=== PATIENT | female | born 1980 | race Caucasian/White ===

== ENCOUNTER 2017-11-12 23:55 | Emergency (ER) | payer MEDICARE, MEDICAID, SELFPAY ==
[2017-11-12 23:56] VITALS: BP 132/93; PULSE 122; RESP 21; TEMP 37.3; O2SAT 92; BMI 34.6
[2017-11-13] VITALS (12 sets, daily range): BP systolic 90–120; BP diastolic 46–79; PULSE 80–98; RESP 14–20; TEMP 37.3; O2SAT 93–100
--- NOTE | 2017-11-13 00:02 | CT_ITS ---
STUDY: CT BRAIN WITHOUT CONTRAST REASON FOR EXAM: Female, 37 years old. Altered mental status. RADIATION DOSAGE (If Supplied By Facility): CTDIvol = ( 44.99 ) mGy, DLP = ( 745.49 ) mGycm TECHNIQUE: Transaxial CT imaging of the brain was performed without administration of intravenous contrast material. Individualized dose optimization techniques were used for this CT. COMPARISON: None. FINDINGS: Normal soft tissue structures. Normal calvarium. Normal size ventricles and extra-axial spaces for the patient's age. Normal white matter tracts of the cerebral hemispheres. Normal basal ganglia and thalami. Normal brainstem. Normal cerebellum. There is no intracranial hemorrhage. There are no findings of an acute ischemic infarction. Normal visualized paranasal sinuses. CT/Brain/Head without Contrast IMPRESSION: Normal unenhanced CT scan of the brain. Electronically Signed: Charles Strong MD at 0:59 EDT Tel , Service support ,
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
[2017-11-13 00:20] LABS: Absolute Lymphocyte Count 3.35 X10^3/ul (0.83-4.51); Absolute Neutrophil Count 11.1 X10^3/uL (2.0-7.7); Basophil# 0.02 X10^3/uL; Basophil% 0.1 % (0-1); Eosinophil# 0.11 X10^3/uL; Eosinophils% 0.7 % (0-5); Hematocrit 41.7 % (37-47); Hemoglobin 14.5 g/dl (12.0-15.0); Lymphocyte # 3.35 X10^3/ul (4.0); Mean Corp Hgb Conc 34.8 g/gl (32-36); Mean Corpuscular Hgb 30.5 pg (27.0-32.0); Mean Corpuscular Volume 87.8 fL (81-99); Mean Platelet Vol. 10.3 fl (6.2-12.0); Monocyte# 0.63 X10^3/uL; Monocyte% 4.1 % (0-10); Neutrophil # 11.05 X10^3/uL (2.7-7.7); Neutrophil % 72.8 % (47-70); Platelet Count 384 K/mm3 (150-450); RBC Distribution Width CV 13.6 % (11.6-14.6); RBC Distribution Width SD 43.6 fl (35.1-43.9); Red Blood Count 4.75 M/mm3 (4.2-5.4); White Blood Count 15.2 K/mm3 (4.4-11.0)
[2017-11-13 00:24] LABS: POSITIVE COUNT NO; POSITIVE DIFFERENTIAL NO; POSITIVE MORPHOLOGY NO
[2017-11-13 00:46] LABS: ALB/GLOB Ratio 0.8 RATIO (0.9-2.4); AST(SGOT) 16 U/L (15-37); Alanine Aminotransfer ALT/SGPT 29 U/L (13-56); Albumin, Serum 3.4 g/dL (3.2-5.0); Alkaline Phosphatase 122 U/L (45-117); Anion Gap 13 (5-15); BUN 10 mg/dL (7-18); Calcium,Total 9.1 mg/dL (8.5-10.1); Chloride 105 mmol/L (98-107); Creatinine, Serum 0.91 mg/dL (0.55-1.02); EST Glomerular Filtration Rate 73 mL/min (>60); Est Glom Filt Rate - Afr Amer 89 mL/min (>60); Estimated Creatinine Clearance 75.43 ml/min; Globulin 4.1 g/dL (2.2-4.2); Glucose 180 mg/dL (74-106); Potassium 3.5 mmol/L (3.5-5.1); Protein, Total 7.5 g/dL (6.4-8.2); Sodium Level 139 mmol/L (136-145); Thyroid Stim Hormone (TSH) 3.46 uIU/mL (0.358-3.74)
[2017-11-13 00:56] LABS: Alcohol, Blood (Medical)-Serum < 3.0 mg/dL
[2017-11-13 01:34] LABS: Bacteria 0 SEEN /hpf (None Seen); Mucous, Urine 0 SEEN /hpf (<or=2+); Red Blood Cells-Urine 0 SEEN /hpf (0-5)
[2017-11-13 01:38] LABS: Color, Urine Yellow (Yellow); Glucose, Dipstick Normal (Normal); Ketone-Dipstick 5 mg/dl (Negative); Leukocyte Esterase-Dipstick 25 /ul (Negative); Nitrite-Dipstick Negative (Negative); Occult Blood-Urine 10 /ul (Negative); Protein-Dipstick 15 mg/dl (Negative); Urine Bilirubin Dipstick Negative (Negative); Urine Clarity Sl. Cloudy (Clear); Urine Urobilinogen Normal (Normal)
[2017-11-13 01:45] LABS: Hyaline Cast 0-5 SEEN /lpf (0-5); Squamous Epithelial Cells - UA > 100 SEEN /hpf (5-10); White Blood Cells 5-10 SEEN /hpf (0-5)
[2017-11-13 01:52] LABS: Pregnancy, Serum, hCG Quali. NEGATIVE Negative (0-9 Nonpreg)
[2017-11-13 01:58] LABS: Amphetamine Urine VISTA NEGATIVE (<1000 ng/mL); Barbiturate Urine VISTA NEGATIVE (< 200 ng/mL); Benzodiazepine Urine VISTA POSITIVE (< 200 ng/mL); Cocaine Urine VISTA NEGATIVE (< 300 ng/mL); Ecstacy Urine VISTA NEGATIVE (< 500 ng/mL); Methadone Urine VISTA NEGATIVE (< 300 ng/mL); PCP Urine VISTA NEGATIVE (< 25 ng/mL); THC Urine VISTA NEGATIVE (< 50 ng/mL); Vista UDS pH Range 5
--- NOTE | 2017-11-13 02:29 | ED.RN ---
REMOVED LEATHER RESTRAINTS FROM BILAT ANKLES AND WRIST,WILL MONITOR.PT SLEEPING.
--- NOTE | 2017-11-13 08:44 | NURSING ---
[facility] CALLED TO SAY PATIENT HAS TO BE OUT OF RESTRAINTS FOR 24 HRS BEFORE THEY WILL TAKE HER. CALLED CRISIS AND LET [facility]OSSOM KNOW.
--- NOTE | 2017-11-13 14:02 | ED.RN ---
Attempted to call report to Sandra Baldwin, no answer. Will call back.
--- NOTE | 2017-11-13 14:14 | NURSING ---
[facility] ETA IS 45 MIN
== END 2017-11-13 15:20 ==
PROVIDERS: Emergency Provider Emergency Medicine
DX: F31.9 Bipolar disorder, unspecified (principal); F23 Brief psychotic disorder; M25.572 Pain in left ankle and joints of left foot; Z78.1 Physical restraint status
CPT/HCPCS: 70450; 80053; 80307; 80320; 81001; 84443; 84703; 85025; 99285; G0480

== ENCOUNTER 2018-04-23 09:30 | Emergency (ER) | payer MEDICARE, MEDICAID, SELFPAY ==
[2018-04-23] VITALS (13 sets, daily range): BP systolic 111–165; BP diastolic 64–123; PULSE 74–141; RESP 14–18; TEMP 37.1; O2SAT 97–100; BMI 28.3
--- NOTE | 2018-04-23 09:37 | ED.RN ---
PT REFUSES TO ANSWER QUESTIONS, PT IS PINK SLIPPED.
[2018-04-23] MEDS: LORazepam 2 MG/ML Syringe IM (09:51)
[2018-04-23] MEDS: Haloperidol Lactate 5 MG/ML Vial IM (09:51)
[2018-04-23] MEDS: DiphenhydrAMINE 50 MG/ML Syringe 25 MG IM (09:51)
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
[2018-04-23] MEDS: Ziprasidone IM 20 MG/ML VIAL IM (10:20)
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
[2018-04-23 11:35] LABS: Absolute Lymphocyte Count 1.58 X10^3/ul (0.83-4.51); Absolute Neutrophil Count 8.4 X10^3/uL (2.0-7.7); Basophil# 0.02 X10^3/uL; Basophil% 0.2 % (0-1); Eosinophil# 0.02 X10^3/uL; Eosinophils% 0.2 % (0-5); Hematocrit 40.9 % (37-47); Hemoglobin 13.5 g/dl (12.0-15.0); Lymphocyte # 1.58 X10^3/ul (4.0); Mean Corpuscular Hgb 29.5 pg (27.0-32.0); Mean Corpuscular Volume 89.5 fL (81-99); Mean Platelet Vol. 10.7 fl (6.2-12.0); Monocyte# 0.48 X10^3/uL; Monocyte% 4.5 % (0-10); Neutrophil # 8.44 X10^3/uL (2.7-7.7); POSITIVE COUNT NO; POSITIVE DIFFERENTIAL NO; POSITIVE MORPHOLOGY NO; Platelet Count 270 K/mm3 (150-450); RBC Distribution Width CV 14.4 % (11.6-14.6); RBC Distribution Width SD 46.3 fl (35.1-43.9); Red Blood Count 4.57 M/mm3 (4.2-5.4); White Blood Count 10.6 K/mm3 (4.4-11.0)
[2018-04-23 11:44] LABS: Anion Gap 13 (5-15); BUN 9 mg/dL (7-18); BUN/Creat Ratio 11.3 RATIO (10-20); Calcium,Total 8.8 mg/dL (8.5-10.1); Chloride 101 mmol/L (98-107); EST Glomerular Filtration Rate 85 mL/min (>60); Est Glom Filt Rate - Afr Amer 103 mL/min (>60); Estimated Creatinine Clearance 84.96 ml/min; Glucose 126 mg/dL (74-106); Potassium 3.3 mmol/L (3.5-5.1); Sodium Level 138 mmol/L (136-145)
[2018-04-23 11:47] LABS: Pregnancy, Serum, hCG Quali. NEGATIVE Negative (0-9 Nonpreg)
[2018-04-23 12:33] LABS: Amphetamine Urine VISTA NEGATIVE (<1000 ng/mL); Barbiturate Urine VISTA NEGATIVE (< 200 ng/mL); Benzodiazepine Urine VISTA NEGATIVE (< 200 ng/mL); Cocaine Urine VISTA NEGATIVE (< 300 ng/mL); Ecstacy Urine VISTA NEGATIVE (< 500 ng/mL); Methadone Urine VISTA NEGATIVE (< 300 ng/mL); PCP Urine VISTA NEGATIVE (< 25 ng/mL); THC Urine VISTA NEGATIVE (< 50 ng/mL); Vista UDS pH Range 5
--- NOTE | 2018-04-23 14:46 | ED.RN ---
Pt sleeping and in no distress. restraints removed from right arm and left leg. Pt awoke shortly and was informed if behavior remained intact the remaining restraints would be removed.
--- NOTE | 2018-04-23 17:05 | ED.RN ---
CRISIS WE WILL BE OVER SOON
--- NOTE | 2018-04-23 17:48 | ED.RN ---
THIS RN SPEAKING WITH PT. PT EDUCATED THAT SHE CANNOT LEAVE, AND THAT SHE MUST REMAIN COOPERATIVE. PT INFORMED THAT SHE IS AWAITING CRISIS COUNSELOR. PT REPORTS THAT SHE WILL BE COOPERATIVE WITH STAFF. RESTRAINTS REMOVED AT 1745. PT ASSISTED UP TO BSC. MEAL AND DRINK GIVEN. HRO IN DEPT.
--- NOTE | 2018-04-23 19:18 | EKG12_ITS ---
Test Reason : Blood Pressure : / mmHG Vent. Rate : 081 BPM Atrial Rate : 081 BPM P-R Int : 176 ms QRS Dur : 080 ms QT Int : 382 ms P-R-T Axes : 049 -08 038 degrees QTc Int : 443 ms Normal sinus rhythm Low voltage QRS Borderline ECG Confirmed by ALTA BRODY, CHARISSE ([id number]), dictionary editor SHERIDAN DELONG ([id number] on 04/27/2018 8:49:37 AM Referred By: AR Confirmed By:CHARISSE HOLM MD
[2018-04-23 20:08] LABS: AST(SGOT) 14 U/L (15-37); Alanine Aminotransfer ALT/SGPT 24 U/L (13-56); Albumin, Serum 3.7 g/dL (3.2-5.0); Alkaline Phosphatase 113 U/L (45-117); Bilirubin, Direct 0.06 mg/dL (0.00-0.30); Globulin 3.5 g/dL (2.2-4.2); Protein, Total 7.2 g/dL (6.4-8.2)
[2018-04-23 22:05] LABS: Bacteria 0 SEEN /hpf (None Seen); Mucous, Urine 0 SEEN /hpf (<or=2+); Red Blood Cells-Urine 0 SEEN /hpf (0-5); White Blood Cells 0 SEEN /hpf (0-5)
[2018-04-23 22:06] LABS: Color, Urine Yellow (Yellow); Glucose, Dipstick Normal (Normal); Ketone-Dipstick Negative (Negative); Leukocyte Esterase-Dipstick Negative /ul (Negative); Nitrite-Dipstick Negative (Negative); Occult Blood-Urine Negative /ul (Negative); Protein-Dipstick Negative (Negative); Specific Gravity, Urine 1.015 (1.002-1.030); Urine Bilirubin Dipstick Negative (Negative); Urine Clarity Sl. Cloudy (Clear); Urine Urobilinogen Normal (Normal)
[2018-04-23 22:11] LABS: Squamous Epithelial Cells - UA 0-5 SEEN /hpf (5-10)
[2018-04-23 22:12] LABS: Amorphous Sediment 1+ PHOS
--- NOTE | 2018-04-23 22:32 | ED.RN ---
EXPLAINED TO PT THAT SHE IS GOING TO BE TRANSFERRED TO [facility], PT DOES NOT WANT TO TRANSFERRED. EXPLAINED TO PT THAT SHE HAS TO GO. PT STARTED TO RAISE HER VOICE BUT DID COMPLY TO GET ON COT WITH THE SQUAD. PT LEFT ON SQUAD COT.
== END 2018-04-23 22:33 ==
PROVIDERS: Emergency Medicine; Emergency Provider Emergency Medicine
DX: F23 Brief psychotic disorder (principal); F31.9 Bipolar disorder, unspecified; Z91.14 Patient's other noncompliance with medication regimen
CPT/HCPCS: 80048; 80076; 80307; 80320; 81001; 84703; 85025; 93005; 96372; 99285; G0480; J3486

== ENCOUNTER 2018-12-17 21:15 | Emergency (ER) | payer MEDICARE, MEDICAID, SELFPAY ==
[2018-04-23 09:31] VITALS: BMI 28.3
[2018-12-17 21:16] VITALS: RESP 15; TEMP 36.8; BMI 29.9
[2018-12-17] MEDS: LORazepam 1 MG Tablet PO (21:35)
[2018-12-17 21:45] VITALS: BP 178/145; PULSE 120; RESP 22; O2SAT 97
[2018-12-17] MEDS: Ziprasidone IM 20 MG/ML VIAL IM (22:05)
[2018-12-17 22:10] LABS: Absolute Lymphocyte Count 3.65 X10^3/uL (0.83-4.51); Absolute Neutrophil Count 9.3 X10^3/uL (2.0-7.7); Basophil# 0.03 X10^3/uL; Basophil% 0.2 % (0-1); Eosinophil# 0.07 X10^3/uL; Eosinophils% 0.5 % (0-5); Hematocrit 45.1 % (37-47); Hemoglobin 14.8 g/dL (12.0-15.0); Lymphocyte # 3.65 X10^3/ul (4.0); Lymphocyte % 26.3 % (19-41); Mean Corp Hgb Conc 32.8 g/dL (32-36); Mean Corpuscular Volume 91.3 fL (81-99); Mean Platelet Vol. 10.5 fl (6.2-12.0); Monocyte# 0.77 X10^3/uL; Monocyte% 5.5 % (0-10); NRBC Flagged by Analyzer 0 % (0-5); Neutrophil # 9.34 X10^3/uL (2.7-7.7); Neutrophil % 67.2 % (47-70); Platelet Count 357 K/mm3 (150-450); RBC Distribution Width CV 13.3 % (11.6-14.6); RBC Distribution Width SD 45.1 fl (35.1-43.9); Red Blood Count 4.94 M/mm3 (4.2-5.4); White Blood Count 13.9 K/mm3 (4.4-11.0)
[2018-12-17 22:16] LABS: Amphetamine Urine VISTA NEGATIVE (<1000 ng/mL); Barbiturate Urine VISTA NEGATIVE (< 200 ng/mL); Benzodiazepine Urine VISTA NEGATIVE (< 200 ng/mL); Cocaine Urine VISTA NEGATIVE (< 300 ng/mL); Ecstacy Urine VISTA NEGATIVE (< 500 ng/mL); Methadone Urine VISTA NEGATIVE (< 300 ng/mL); PCP Urine VISTA NEGATIVE (< 25 ng/mL); THC Urine VISTA NEGATIVE (< 50 ng/mL); Vista UDS pH Range 5
[2018-12-17 22:16] LABS: Internal QC Validated? YES +Cl - CLEAR BKGD; Pregnancy, Serum, hCG Quali. NEGATIVE Negative
[2018-12-17 22:20] LABS: Anion Gap 8 (5-15); BUN 11 mg/dL (7-18); BUN/Creat Ratio 10.6 RATIO (10-20); Chloride 105 mmol/L (98-107); Creatinine, Serum 1.04 mg/dL (0.55-1.02); EST Glomerular Filtration Rate 62 mL/min (>60); Est Glom Filt Rate - Afr Amer 76 mL/min (>60); Estimated Creatinine Clearance 65.35 ml/min; Glucose 136 mg/dL (74-106); Potassium 3.6 mmol/L (3.5-5.1); Sodium Level 138 mmol/L (136-145)
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
[2018-12-17 22:35] LABS: Alcohol, Blood (Medical)-Serum < 3.0 mg/dL
--- NOTE | 2018-12-17 22:38 | NURSING ---
CALLED CRISIS AT [id number]
[2018-12-17 23:01] VITALS: PULSE 80; RESP 14
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
--- NOTE | 2018-12-18 01:20 | PCA ---
CRISIS COUNSELOR SENT REFERRAL TO [facility] AWAITING ACCEPTANCE.
--- NOTE | 2018-12-18 01:31 | PCA ---
[facility] HAS RECEIVED FAX INFORMATION AWAITING ACCEPTANCE.
[2018-12-18 02:54] VITALS: BP 101/51; PULSE 68; RESP 15; TEMP 36.5; O2SAT 95
--- NOTE | 2018-12-18 03:25 | NURSING ---
ACCEPTED TO [facility] BY DR. LIVE [phone] REPORT
[2018-12-18 06:12] VITALS: RESP 18
[2018-12-18 07:08] VITALS: BP 101/51; PULSE 68; RESP 15; TEMP 36.6; O2SAT 95
[2018-12-18 07:49] VITALS: BP 124/84; PULSE 78; RESP 16; O2SAT 98
== END 2018-12-18 07:52 ==
PROVIDERS: Emergency Provider Emergency Medicine
DX: F29 Unspecified psychosis not due to a substance or known physiological condition (principal); M25.532 Pain in left wrist; M25.531 Pain in right wrist; M25.572 Pain in left ankle and joints of left foot; M25.571 Pain in right ankle and joints of right foot; G89.29 Other chronic pain
CPT/HCPCS: 80048; 80307; 80320; 84703; 85025; 96372; 99285; G0480; J3486

== ENCOUNTER 2020-12-02 19:21 | Emergency (ER) | payer MEDICARE, MEDICAID, SELFPAY ==
[2020-12-02 19:23] VITALS: BP 126/90; PULSE 97; RESP 18; TEMP 36.6; O2SAT 98; BMI 36.3
[2020-12-02] MEDS: hydrOXYzine PAM 25 MG Capsule 50 MG PO (21:12)
--- NOTE | 2020-12-02 21:16 | ED.RN ---
PT LEFT PRIOR TO RECIEVING DC INSTRUCTIONS
--- NOTE | 2020-12-02 21:18 | EDS_ITS ---
HPI History of Present Illness Chief Complaint: Other, Pain/Inj Narrative Narrative: Patient is a 40-year-old female who states her legs have been shaking ever since she was in the mental institution and she received a shot. She denies any trauma any nausea vomiting or back pain associated with this. She states she is unsure what she was given but as the shaking is not stopped at home she presents for evaluation [facility] Medical History Anxiety Schizophrenia Home Medications benztropine 0.5 mg PO DAILY 12/02/20 [History Last Taken Unknown] divalproex [Depakote] 500 mg PO TID 12/02/20 [History Last Taken Unknown] fluphenazine decanoate 10 mg IM UD 12/02/20 [History Last Taken 11/26/20] trazodone 50 mg PO QHS PRN 12/02/20 [History Last Taken Unknown] Allergy/AdvReac Type Severity Reaction Status Date / Time risperidone Allergy Unknown Verified 12/02/20 19:25 Tetanus Vaccines and Toxoid Allergy Unknown Verified 12/02/20 19:25 [Tetanus Vaccines & Toxoid] Social History Smoking Status: Current every day smoker tobacco type: cigarettes ROS ROS ED Constitutional Constitutional ED: Denies chills or fever(s) ENT ENT ED: Denies sore throat Cardiovascular Cardiovascular: Denies chest pain Respiratory/Chest Respiratory/Chest: Denies cough Gastrointestinal Gastrointestinal: Denies nausea or vomiting Musculoskeletal Musculoskeletal: Reports myalgias Integumentary Denies rash Neurologic Neurologic: Denies headache(s) Psychiatric Psychiatric: Reports anxiety EXAM Physical Exam Const Vital Signs: 12/02/20 19:23 12/02/20 20:00 Temperature 97.9 F Temperature Source Temporal Pulse Rate 97 Respiratory Rate 18 Respiratory Pattern Normal Blood Pressure 126/90 H Blood Pressure Mean 102 Pulse Ox 98 Oxygen Delivery Method Room Air Positive well nourished and well developed General Appearance ED: well developed Eyes PERRL and EOMs intact bilaterally Neck supple Chest Wall inspection of chest normal Resp normal respiratory effort and clear to auscultation bilaterally Cardio regular rate, regular rhythm and no murmurs GI GI Narrative: Abdomen soft nontender nondistended with normoactive bowel sounds no voluntary guarding or rigidity no pulsatile mass Back/Spine Back/Spine Narrative: No bony deformity or step-off of the thoracic or lumbar spine no midline pain on palpation. No saddle anesthesia. Negative straight leg. No clonus or Babinski. Patellar reflexes are +2-4 bilaterally Extremity Extremity Narrative: Bilateral lower extremities are neurovascularly intact. Patient has active shaking of both lower legs that resolved when she does dedicated activities such as walking or changing position in the bed. The shaking also resolves with distraction. No signs of trauma no overlying ecchymosis redness or warmth to suggest infection. No asymmetric edema Neuro oriented x3 and CN's II-XII intact bilaterally Sensorium / Orientation: alert Psych Mood & Affect: anxious and tearful Skin no rashes or lesions noted MDM MDM MDM Narrative Medical decision making narrative: Patient presented to the ER in no acute distress. The tremors were more voluntary on exam as they would resolve with distraction or activity of the body. She was unsure what meds she was given but there was no signs of neuroleptic malignant syndrome or serotonin syndrome. Therefore I felt no need for imaging or laboratory studies. Patient will be given hydroxyzine to help calm her down as I feel this is related to anxiety and she is safe for discharge as she has no homicidal or suicidal ideation Discharge Plan Triage Chief Complaint: Other, Pain/Inj ED Provider: Yrn Matt Dx/Rx/DC Orders Clinical Impression: Tremor, Anxiety Instructions: Your Body's Response to Anxiety Prescriptions: No Action benztropine 0.5 mg Tablet 0.5 mg PO DAILY RF: 0 trazodone 50 mg Tablet 50 mg PO QHS PRN (Reason: Sleep) RF: 0 divalproex [Depakote] 500 mg Tablet,Delayed Release (Dr/Ec) 500 mg PO TID RF: 0 fluphenazine decanoate 25 mg/mL solution 10 mg IM UD RF: 0 Primary Care Provider: Care Physician,No Primary Referrals: Care Physician,No Primary [Primary Care Provider] - Fast,Julieta, DO [NON-STAFF] - 3-5 Days if not improving Disposition Disposition: Home, Self Care
== END 2020-12-02 21:24 | disposition home or self-care (01) ==
PROVIDERS: Emergency Provider Emergency Medicine
DX: R25.1 Tremor, unspecified (principal); F41.9 Anxiety disorder, unspecified; F20.9 Schizophrenia, unspecified; Z79.899 Other long term (current) drug therapy; F17.210 Nicotine dependence, cigarettes, uncomplicated
CPT/HCPCS: 99284

== ENCOUNTER 2021-08-18 15:20 | Emergency (ER) | payer MEDICARE, SELFPAY ==
[2021-08-18] VITALS (7 sets, daily range): BP systolic 102–155; BP diastolic 59–105; PULSE 72–97; RESP 15–18; TEMP 36.4; O2SAT 93–98; BMI 33.0
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
--- NOTE | 2021-08-18 15:46 | ED.RN ---
pt arrives to ed with handcuff behind her back. she arrived screaming i want restraining orders against all of you. fuck you and you etc. pt is pink slipped by PD. per PD she was spitting and bitting at her residence. she was premedicated by ems with 20 mg of geodon IM. ed dr ordered violent restraints to ensure patient and staff safety. restraints applied with pd and ed staff. no injury occurred to patient or staff with placement. justin jamison, rn [id number]
[2021-08-18] MEDS: Haloperidol Lactate 5 MG/ML Vial IM (16:45)
[2021-08-18] MEDS: LORazepam 2 MG/ML Syringe IM (16:45)
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
[2021-08-18 18:16] LABS: Absolute Lymphocyte Count 2.08 X10^3/uL (0.83-4.51); Absolute Neutrophil Count 7.9 X10^3/uL (2.0-7.7); Basophil# 0.02 X10^3/uL; Basophil% 0.2 % (0-1); Eosinophil# 0.03 X10^3/uL; Eosinophils% 0.3 % (0-5); Hematocrit 41.6 % (37-47); Hemoglobin 13.7 g/dL (12.0-15.0); Lymphocyte # 2.08 X10^3/ul (0.83-4.51); Lymphocyte % 19.5 % (19-41); Mean Corp Hgb Conc 32.9 g/dL (32-36); Mean Corpuscular Volume 91.2 fL (81-99); Mean Platelet Vol. 9.9 fl (6.2-12.0); Monocyte# 0.54 X10^3/uL; Monocyte% 5.1 % (0-10); NRBC Flagged by Analyzer 0 % (0-5); Neutrophil # 7.93 X10^3/uL (2.7-7.7); Neutrophil % 74.5 % (47-70); Platelet Count 301 K/mm3 (150-450); RBC Distribution Width CV 13.2 % (11.6-14.6); RBC Distribution Width SD 44.3 fl (35.1-43.9); Red Blood Count 4.56 M/mm3 (4.2-5.4); White Blood Count 10.6 K/mm3 (4.4-11.0)
[2021-08-18 18:34] LABS: Internal QC Validated? YES +Cl - CLEAR BKGD; Pregnancy, Serum, hCG Quali. NEGATIVE Negative
[2021-08-18 19:01] LABS: Alcohol, Blood (Medical)-Serum < 3.0 mg/dL
--- NOTE | 2021-08-18 19:12 | ED.RN ---
pt has become more cooperative after medications were given. labs pulled by manager agricultural. pt given a sandwich, cheese stick, and cookies with a jordi cola to drink. 2 extremities removed from restraints. pt was instructed that if she remained calm that we would work towards removing her from restraints. justin jamison rn
[2021-08-18 19:15] LABS: AST(SGOT) 24 U/L (15-37); Alanine Aminotransfer ALT/SGPT 39 U/L (13-56); Albumin, Serum 3.4 g/dL (3.2-5.0); Alkaline Phosphatase 116 U/L (45-117); Anion Gap 6 (5-15); BUN 13 mg/dL (7-18); Calcium,Total 8.9 mg/dL (8.5-10.1); Chloride 110 mmol/L (98-107); Creatinine, Serum 0.77 mg/dL (0.55-1.02); EST Glomerular Filtration Rate 88 mL/min (>60); Est Glom Filt Rate - Afr Amer 106 mL/min (>60); Estimated Creatinine Clearance 96.01 ml/min; Globulin 3.4 g/dL (2.2-4.2); Glucose 111 mg/dL (74-106); Protein, Total 6.8 g/dL (6.4-8.2); Sodium Level 140 mmol/L (136-145)
--- NOTE | 2021-08-18 20:20 | ED.RN ---
pt removed from restraints and ambulated to bathroom. no gait or balance disturbance noted. hat was placed into toilet. this nurse heard paitent urinate into toilet. upon entering the restroom hat was empty of urine. was informed of attempt to collect urine. request that we call crisis to evaluate pt and to let them know we would collect a sample next time she goes. pt left out of restraints. she is resting in bed, eyes closed with no s/s of physical distress. justin jamison rn [id number]
[2021-08-19] VITALS (8 sets, daily range): BP systolic 108–121; BP diastolic 66–74; PULSE 71–80; RESP 15–18; O2SAT 96–98
--- NOTE | 2021-08-19 00:24 | ED.RN ---
CRISIS CALLED AND SAID PATIENT IS OUT OF BED DAYS, SO CRISIS IS GOING TO HAVE TO TRY DIFFERENT PLACES TO GET HER INTO
--- NOTE | 2021-08-19 07:48 | ED.RN ---
Attempted to obtain pt's vitals. Upon entering the room and introducing self, pt refused vitals. Asked if RN could obtain her blood pressure, pt stated NO! I don't like you!. Attempted then to obtain temperature and pt stated NO! You're too greedy!
[2021-08-19 08:13] LABS: Bacteria 0 SEEN /hpf (None Seen); Mucous, Urine 0 SEEN /hpf (<or=2+); Red Blood Cells-Urine 0 SEEN /hpf (0-5)
[2021-08-19 08:17] LABS: Color, Urine Yellow (Yellow); Glucose, Dipstick Normal (Normal); Ketone-Dipstick Negative (Negative); Leukocyte Esterase-Dipstick Negative /ul (Negative); Nitrite-Dipstick Negative (Negative); Occult Blood-Urine Negative /ul (Negative); Protein-Dipstick Negative (Negative); Urine Bilirubin Dipstick Negative (Negative); Urine Clarity Clear (Clear); Urine Urobilinogen Normal (Normal)
--- NOTE | 2021-08-19 08:21 | ED.RN ---
Pt came out of room asking for bathroom. AUDIO RECORDING ENGINEER assisted to bathroom and pt provided a urine sample. Pt requesting coffee and a nicotine gum. Pt was agreeable to allow AUDIO RECORDING ENGINEER to obtain vitals. Coffee provided. Will speak with MD regarding Nicotine gum request.
[2021-08-19 08:36] LABS: Amphetamine Urine VISTA NEGATIVE (<1000 ng/mL); Barbiturate Urine VISTA NEGATIVE (< 200 ng/mL); Benzodiazepine Urine VISTA NEGATIVE (< 200 ng/mL); Cocaine Urine VISTA NEGATIVE (< 300 ng/mL); Ecstacy Urine VISTA NEGATIVE (< 500 ng/mL); Methadone Urine VISTA NEGATIVE (< 300 ng/mL); PCP Urine VISTA NEGATIVE (< 25 ng/mL); THC Urine VISTA NEGATIVE (< 50 ng/mL); Vista UDS pH Range 5
[2021-08-19 08:45] LABS: Squamous Epithelial Cells - UA 5-10 SEEN /hpf (5-10); White Blood Cells 0-5 SEEN /hpf (0-5)
--- NOTE | 2021-08-19 09:08 | ED.RN ---
PT IS BECOMING MORE AGGRESSIVE AND AGGITATED. GAVE PT TOOTHPASTE AND TOOTHBRUSH. PT IS YELLING OUT OF THE ROOM ABOUT NO CONTACT ORDERS AND CUSSING AT STAFF IN THE HALLWAY. UNABLE TO DIVERT PT.
[2021-08-19] MEDS: Ziprasidone IM 20 MG/ML VIAL IM (09:23)
--- NOTE | 2021-08-19 10:22 | NURSING ---
PER [place] WITH CRISIS; SHE IS OUT OF MEDICAID DAYS. HAVE TO GO THRU MEDICAID FACILITIES; [facility]
--- NOTE | 2021-08-19 10:48 | CM.ED ---
Addendum entered by Ana Du 08/19/21 14:46: SKIP noted patient has Medicare [place] so SKIP asked [facility] to make a referral to [facility]. Carmen from [facility] stated patient has used all psych bed days. Thus, as patient has exhausted her psych beds days from her insurance provider, Medicare [place] patient placement at [facility] must be pursued. Ana Irwin Original Note: SKIP note SKIP called Carmen at [facility] for update on patient's placement status. Patient is out of medicaid psych bed days and thus referred to [facility]. The wait list for [facility] has 8 people on it. SKIP updated relief charge nurse. Plan: [facility] is working on placement. Ana IRWIN
--- NOTE | 2021-08-19 12:02 | EKG12_ITS ---
Test Reason : Blood Pressure : / mmHG Vent. Rate : 080 BPM Atrial Rate : 080 BPM P-R Int : 194 ms QRS Dur : 076 ms QT Int : 396 ms P-R-T Axes : 046 -15 034 degrees QTc Int : 456 ms Normal sinus rhythm Low voltage QRS Borderline ECG Confirmed by ALTA BRODY, CHARISSE ([id number]), medical transcription editor MYRON STOUT ([id number]) on 08/21/2021 9:47:32 AM Referred By: KAYLEE Confirmed By:CHARISSE HOLM MD
--- NOTE | 2021-08-19 12:46 | ED.RN ---
FAXED EKG AND TOX SCREEN TO [facility] PER THEIR REQUEST
[2021-08-19] MEDS: Nicotine Polacrilex 2 MG GUM PO ×4 (12:49→22:13)
[2021-08-19] MEDS: Acetaminophen 500 MG Tablet 1000 MG PO (16:14)
--- NOTE | 2021-08-19 17:12 | CM.ED ---
Clau from [facility] called. [place] had advised that patient is out of medicare bed days but that patient could go to [facility] with psych unit so her staff has been calling various hospitals today but no beds are available. Clau also advised that [facility] said that they can take patient tomorrow. Mu, from [facility], told Clau that they are aware of patient and her issues and will take her on Thursday morning. Mu advised they have all the paperwork needed for patient. SW updated RN and environmental health specialist. Plan: [facility] Ana IRWIN
--- NOTE | 2021-08-19 20:10 | CM.ED ---
SW Note RN advised that [facility] called for an update. RN indicated that [facility] will call during 3rd shift to advise when patient can be sent there for treatment. Plan: [facility] Ana IRWIN
[2021-08-20 00:48] VITALS: RESP 16
[2021-08-20 02:04] VITALS: RESP 16
[2021-08-20 03:30] VITALS: RESP 15
[2021-08-20 04:49] VITALS: PULSE 87; RESP 18; O2SAT 96
[2021-08-20 06:14] VITALS: RESP 16
[2021-08-20 07:05] VITALS: RESP 16
--- NOTE | 2021-08-20 07:29 | NURSING ---
CALLED [facility], ETA IS 20 MIN
== END 2021-08-20 08:05 ==
PROVIDERS: Emergency Provider Emergency Medicine; Visit Provider Emergency Medicine
DX: F23 Brief psychotic disorder (principal); F22 Delusional disorders; F17.210 Nicotine dependence, cigarettes, uncomplicated; E66.9 Obesity, unspecified
CPT/HCPCS: 36415; 80053; 80307; 81001; 82077; 84443; 84703; 85025; 87811; 93005; 96372; 99285; J3486

== ENCOUNTER 2021-10-07 14:48 | Emergency (ER) | payer MEDICARE, SELFPAY ==
[2021-10-07 14:52] VITALS: PULSE 87; RESP 18; TEMP 36.2; O2SAT 98; BMI 38.0
--- NOTE | 2021-10-07 15:02 | EX.ED.VIS.PS ---
HPI HPI - Psych History of Present Illness Chief Complaint: Mental Health Narrative Narrative: 41-year-old female here with mental health concern. The patient states she thinks people are trying to hack her through her bank account. Per police officers who brought her in patient called was paranoid behaving abnormally and so they brought her to the emergency department for concern for acute psychosis. Old chart reviewed: History of bipolar disorder, tremor and anxiety. trazodone, fluphenazine, Depakote PFSH PFSH Medical History Anxiety Schizophrenia Home Medications benztropine 0.5 mg tablet 0.5 mg PO DAILY 12/02/20 [History Last Taken Unknown] divalproex 500 mg tablet,delayed release (Depakote) 500 mg PO TID 12/02/20 [History Last Taken Unknown] fluphenazine decanoate 25 mg/mL injection solution 10 mg IM UD 12/02/20 [History Last Taken 11/26/20] trazodone 50 mg tablet 50 mg PO QHS PRN Sleep 12/02/20 [History Last Taken Unknown] Allergy/AdvReac Type Severity Reaction Status Date / Time risperidone Allergy Unknown Verified 10/07/21 14:54 Tetanus Vaccines and Toxoid Allergy Unknown Verified 10/07/21 14:54 [Tetanus Vaccines & Toxoid] Social History Smoking Status: Current every day smoker tobacco type: cigarettes ROS ROS ED Review of Systems ROS Unobtainable: due to mental condition Constitutional Constitutional ED: Denies chills Cardiovascular Cardiovascular: Denies chest pain Respiratory/Chest Respiratory/Chest: Denies dyspnea or dyspnea on exertion Gastrointestinal Gastrointestinal: Denies abdominal pain Genitourinary Genitourinary ED: Denies dysuria Neurologic Neurologic: Denies headache(s) EXAM Physical Exam Const Vital Signs: 10/07/21 14:52 Temperature 97.1 F L Temperature Source Temporal Pulse Rate 87 Respiratory Rate 18 Pulse Ox 98 Oxygen Delivery Method Room Air Negative for alert or oriented x3 General Appearance ED: Negative for comfortable Orientation / Consciousness: Negative for awake HEENT Denies normocephalic Face and Sinus: Negative for face symmetric External Ear: Negative for external ears normal Mouth ED: No moist mucous membranes normal Throat: Negative for posterior oropharynx normal Eyes Negative for PERRL or EOMs intact bilaterally Neck No full ROM Carotids: other Other Details: no carotid bruits Chest Wall Negative for inspection of chest normal Resp No normal respiratory effort, No no retractions, No no use of accessory muscles and No clear to auscultation bilaterally Cardio Negative for no murmurs or peripheral pulses 2+ throughout GI Negative for no bruits GI Narrative: no pulsatile abdominal masses Negative for no CVA tenderness Back/Spine Cervical Spine: Negative for cervical ROM normal Extremity Negative for normal to inspection or full ROM Psych Psych Narrative: Patient appeared pressured, agitated, she had tangential thoughts, she appeared responding to internal stimuli. Skin Rashes: no rashes MDM MDM MDM Narrative Medical decision making narrative: 41-year-old female presents with concern for psychosis in setting of bipolar disorder med noncompliance. Patient was initially tachycardic but otherwise hemodynamically stable. Initially paranoid, agitated, appear acutely psychotic. Required oral Benadryl, Haldol and Ativan for sedation. Ordered medical clearance labs. Medical clearance labs are pending at this time. Patient will likely require psychiatric admission given decompensated bipolar disorder and likely psychosis. Signed out to p.m. physician in stable condition pending medical clearance and likely admission to psychiatric facility. Lab Data Lab results narrative: Labs are pending at this time Labs: Laboratory Results - last 24 hr 10/07/21 10/07/21 15:49 17:00 WBC 12.5 H RBC 4.79 Hgb 14.3 Hct 44.6 MCV 93.1 MCH 29.9 MCHC 32.1 RDW Std Deviation 45.6 H RDW Coeff of Aubrey 13.3 Plt Count 293 MPV 10.1 Immature Gran % (Auto) 0.300 Neut % (Auto) 83.2 H Lymph % (Auto) 12.5 L Lawrence % (Auto) 3.7 Eos % (Auto) 0.1 Baso % (Auto) 0.2 Absolute Neuts (auto) 10.4 H Absolute Lymphs (auto) 1.56 Nucleated RBC % 0 Urine Opiates Screen NEGATIVE Urine Methadone Screen NEGATIVE Ur Barbiturates Screen NEGATIVE Ur Phencyclidine Scrn NEGATIVE Ur Amphetamines Screen NEGATIVE MDMA (Ecstasy) Screen NEGATIVE U Benzodiazepines Scrn NEGATIVE Urine Cocaine Screen NEGATIVE U Cannabinoids Screen NEGATIVE Ur Drug Screen Comment EKG Initial EKG: Comments: EKG with sinus tachycardia, normal axis, normal intervals, no obvious ST or T wave changes to suggest myocardial ischemia Discharge Plan Triage Chief Complaint: Mental Health ED Provider: Usaam Garcias Dx/Rx/DC Orders Prescriptions: No Action benztropine 0.5 mg Tablet 0.5 mg PO DAILY trazodone 50 mg Tablet 50 mg PO QHS PRN (Reason: Sleep) divalproex [Depakote] 500 mg Tablet,Delayed Release (Dr/Ec) 500 mg PO TID fluphenazine decanoate 25 mg/mL solution 10 mg IM UD Rx Instructions: every 2 weeks Primary Care Provider: Care Physician,No Primary Referrals: Care Physician,No Primary [Primary Care Provider] -
--- NOTE | 2021-10-07 15:13 | EKG12_ITS ---
Test Reason : GENERAL Blood Pressure : / mmHG Vent. Rate : 116 BPM Atrial Rate : 116 BPM P-R Int : 166 ms QRS Dur : 072 ms QT Int : 314 ms P-R-T Axes : 054 001 040 degrees QTc Int : 436 ms Sinus tachycardia Low voltage QRS Inferior infarct , age undetermined , cannot be excluded Poor R wave progression Anterior-Septal ME, age undetermined, cannot be excluded Abnormal ECG Confirmed by GENET BRODY, CANDICE ([id number]), legal editor MYRON STOUT ([id number]) on 10/08/2021 9:06:05 AM Referred By: BHARATH Confirmed By:CANDICE DE LEÓN MD
[2021-10-07] MEDS: DiphenhydrAMINE 25 MG Capsule 50 MG PO (15:16)
[2021-10-07] MEDS: LORazepam 1 MG Tablet 2 MG PO (15:16)
--- NOTE | 2021-10-07 16:00 | CM.ED ---
Social Work Note SW reviewed chart, pt was recently at [facility] and was placed at [facility] due to pt not having any psych beds left under pt's Medicare. Pt has no secondary insurance. Telephone call to Crisis and spoke with Carmen. Carmen checked and either Crisis or this SW can complete assessment for pt. Crisis will then send referral to [facility]. SW to complete assessment. Carmen Eaton METAL CANS SUPERVISOR, SITE MANAGER
[2021-10-07] MEDS: Haloperidol 5 MG Tablet PO (16:04)
[2021-10-07] MEDS: Ibuprofen 200 MG Tablet 400 MG PO (16:12)
[2021-10-07] MEDS: Ibuprofen 200 MG Tablet PO (16:14)
--- NOTE | 2021-10-07 16:33 | CM.ED ---
Social Work Assessment Social Work Psychiatric Assessment Reason for consult: Mental Health Informant(s): Pt, Randell Handley, Chart Review Chief Complaint: Pt states that she came to [facility] because ?they wanted her to come to the hospital.? Pt states the ?officers brought me in.? Pt states that her family has POA and she needs to find her family so she can andrea ?people like you.? Pt states that her family is POA for her bank. Marital/Social History: Marital Status: Pt states ?I don?t know, never know who and where my family is and their alliances? Living Situation: Pt states that she lives in [place] in an apartment. Pt states that she feels like a fraud. [facility] the government?s burn phones. Pt states she couldn?t get her tax information. Pt states that she just lost her father. Pt states she wants to get Soccer Manager balls to get the internet but states she hasn?t got her taxes. Pt states that she was lied to about the burn phones and she can?t pay rent. Pt states the police needs to do their job and disclose information. Support/Resources: Pt states ?not anymore due to manipulation.? History: Pt states she has diplomatic disclose, Ignacio Peace Emery, and has been in the [employer]. Education and Employment History: Pt states that she got her GED and did a work program. Pt states she doesn?t drink alcohol. Pt states that she went to [facility] for Nursing. Mental Health Treatment/History: Pt states that she went to the police to get Civil Scaling Machine Operator to get documentation from the FBI to where and when her family is. Pt states to stop committing fraud. Pt states she had an injury and used Marijuana. Pt states that she became sexually promiscuous and they were ?manipulating wires.? Pt states that she took Flonase and put her wrist and elbow back in. Per previous assessments, pt has been diagnosed with Paranoid Schizophrenia and Schizoaffective D/O Bipolar Type. Triggers/Stressors: Unable to assess at this time due to current psychiatric presentation. Coping Skills: Unable to assess at this time due to current psychiatric presentation. Abuse Issues: Unable to assess at this time due to current psychiatric presentation. Substance Abuse Hx: Pt states ?everything is a drug, this chocolate milk is a drug.? Risk to Self/Others: ? Suicidal: Pt states ?cutting wrists.? Pt states that she is looking forward to making the world a better place. Pt voiced not suicidal ideations. ? Homicidal: Unable to assess at this time due to current psychiatric presentation. ? Violence: Unable to assess at this time due to current psychiatric presentation. Mental Status Exam: Orientation: Pt is alert and orientated x4. Memory: Poor Appearance/General Behavior: Clean/appropriate Mood/Affect: Labile, bizarre Communication Pattern: Rambling, Rapid Thought Process: Flight of Ideas, Paranoid General Intellectual Functioning: Below Average Judgment: Poor Insight: Poor Pt was Pearl Slipped to [facility]. Per [place], ?Patient called police to speak with an officer about unknown problem: Patient then displayed a total loss of reality, talking complete nonsense and exhibiting extreme paranoia. Patient has history of Mental illness. Patient admitted to having thoughts of cutting herself, but said she was not suicidal.? SW discussed with MD Garcias who agrees with recommendation of Inpatient Psychiatric Hospitalization for Crisis Stabilization and Medication Management. Plan: Inpatient Psychiatric Hospitalization for Crisis Stabilization and Medication Management Carmen Eaton UROGYNECOLOGY PHYSICIAN, STRAP MAKER
[2021-10-07 16:53] LABS: Amphetamine Urine VISTA NEGATIVE (<1000 ng/mL); Barbiturate Urine VISTA NEGATIVE (< 200 ng/mL); Benzodiazepine Urine VISTA NEGATIVE (< 200 ng/mL); Cocaine Urine VISTA NEGATIVE (< 300 ng/mL); Ecstacy Urine VISTA NEGATIVE (< 500 ng/mL); Methadone Urine VISTA NEGATIVE (< 300 ng/mL); PCP Urine VISTA NEGATIVE (< 25 ng/mL); THC Urine VISTA NEGATIVE (< 50 ng/mL); Vista UDS pH Range 4
--- NOTE | 2021-10-07 16:53 | CM.ED ---
Social Work Note SW faxed referral to Crisis so Crisis is able to send referral to [place]. Carmen Eaton HEALTH INFORMATION ASSISTANT, FLASH OVEN OPERATOR
[2021-10-07 17:15] LABS: Absolute Lymphocyte Count 1.56 X10^3/uL (0.83-4.51); Absolute Neutrophil Count 10.4 X10^3/uL (2.0-7.7); Basophil# 0.02 X10^3/uL; Basophil% 0.2 % (0-1); Eosinophil# 0.01 X10^3/uL; Eosinophils% 0.1 % (0-5); Hematocrit 44.6 % (37-47); Hemoglobin 14.3 g/dL (12.0-15.0); Lymphocyte # 1.56 X10^3/ul (0.83-4.51); Lymphocyte % 12.5 % (19-41); Mean Corp Hgb Conc 32.1 g/dL (32-36); Mean Corpuscular Hgb 29.9 pg (27.0-32.0); Mean Corpuscular Volume 93.1 fL (81-99); Mean Platelet Vol. 10.1 fl (6.2-12.0); Monocyte# 0.46 X10^3/uL; Monocyte% 3.7 % (0-10); NRBC Flagged by Analyzer 0 % (0-5); Neutrophil # 10.39 X10^3/uL (2.7-7.7); Neutrophil % 83.2 % (47-70); Platelet Count 293 K/mm3 (150-450); RBC Distribution Width CV 13.3 % (11.6-14.6); RBC Distribution Width SD 45.6 fl (35.1-43.9); Red Blood Count 4.79 M/mm3 (4.2-5.4); White Blood Count 12.5 K/mm3 (4.4-11.0)
[2021-10-07 17:29] LABS: ALB/GLOB Ratio 0.9 RATIO (0.9-2.4); AST(SGOT) 19 U/L (15-37); Alanine Aminotransfer ALT/SGPT 44 U/L (13-56); Albumin, Serum 3.4 g/dL (3.2-5.0); Alkaline Phosphatase 113 U/L (45-117); Anion Gap 9 (5-15); BUN 13 mg/dL (7-18); BUN/Creat Ratio 12.6 RATIO (10-20); Chloride 109 mmol/L (98-107); Creatinine, Serum 1.03 mg/dL (0.55-1.02); EST Glomerular Filtration Rate 62 mL/min (>60); Est Glom Filt Rate - Afr Amer 75 mL/min (>60); Estimated Creatinine Clearance 71.78 ml/min; Globulin 3.6 g/dL (2.2-4.2); Glucose 144 mg/dL (74-106); Potassium 3.7 mmol/L (3.5-5.1); Sodium Level 139 mmol/L (136-145)
[2021-10-07 17:30] LABS: Bedside Glucose 93 mg/dL (74-106)
[2021-10-07 17:37] VITALS: BP 116/73; PULSE 96; RESP 18; O2SAT 93
--- NOTE | 2021-10-07 17:48 | CM.ED ---
Addendum entered by Carmen Eaton 10/07/21 18:26: SKIP placed another call to [facility]. SKIP updated that they are not sure if they have beds available or not but to go ahead and fax referral. Referral faxed to [facility]. Original Note: Social Work Note SKIP received call from Clau with Crisis stating SW will need to send referral to psych hospitals that are attached to regular hospitals. Clau states that if pt gets declined at all Psych Hospitals that have a hospital attached to it, then the referral goes to Crisis. SKIP faxed referral to [facility]. [facility], [facility], [facility], [facility], [facility], [facility], has no beds. [facility] is out of their area. SKIP placed a call to [facility] and left message regarding bed availability. SKIP placed a call to [facility] and was instructed to call back in 15-20 minutes. SKIP paged [facility] Pager, waiting for response. SKIP left voicemails for [facility], [facility] and [facility]. SKIP faxed referral to Crisis. Waiting online marketing director back regarding referral and bed availability. Carmen Eaton WELL DRILL OPERATOR, COMB SETTER
[2021-10-07 18:28] LABS: Internal QC Validated? YES +Cl - CLEAR BKGD; Pregnancy, Serum, hCG Quali. NEGATIVE Negative
[2021-10-07 19:09] VITALS: RESP 17
--- NOTE | 2021-10-07 20:28 | CM.ED ---
Addendum entered by Carmen Eaton 10/07/21 20:36: SW received call from [facility]. SW answered questions. [facility] states to send referral to [facility] in [place] fax number [phone]. Referral faxed to [facility] in [place]. Original Note: Social Work Note SW received message from Arianne at [facility] stating they are not able to accept pt as pt doesn't meet criteria for step down unit. [facility] call to [facility] and provided update. [facility] is closed until the due to COVID outbreak. Crisis to continue to work on psych placement for pt. Carmen Eaton RADIO ASSEMBLER, BRIM CUTTER
--- NOTE | 2021-10-07 20:48 | ED.RN ---
[facility] and report nurse to nurse can be called to [phone]. Accepting [address] is Dr Menendez. She is going to [facility]. ETA can be called back to [phone]
[2021-10-07 20:57] VITALS: PULSE 107; RESP 16; TEMP 36.5; O2SAT 95
--- NOTE | 2021-10-07 20:57 | CM.ED ---
Social Work Note [facility] accepted pt. Crisis updated. Carmen Eaton SERVICE STATION CONSOLE OPERATOR, ROASTMASTER
--- NOTE | 2021-10-07 21:00 | NURSING ---
Caled for nurse to nurse port and had to lmom to call back for report.
[2021-10-07 21:23] VITALS: BP 122/74
--- NOTE | 2021-10-07 21:28 | NURSING ---
Mo at [facility] accepted report
== END 2021-10-07 21:30 ==
PROVIDERS: Emergency Provider Emergency Medicine; Visit Provider Emergency Medicine
DX: F31.9 Bipolar disorder, unspecified (principal); F20.9 Schizophrenia, unspecified; F41.9 Anxiety disorder, unspecified; Z91.14 Patient's other noncompliance with medication regimen; F17.210 Nicotine dependence, cigarettes, uncomplicated; Z79.899 Other long term (current) drug therapy
CPT/HCPCS: 80048; 80053; 80307; 82077; 82962; 84703; 85025; 87811; 93005; 99285

== ENCOUNTER 2021-10-24 18:40 | Emergency (ER) | payer MEDICARE, SELFPAY ==
[2021-10-24 18:42] VITALS: BP 209/180; PULSE 136; RESP 17; TEMP 36.2; O2SAT 98; BMI 33.9
--- NOTE | 2021-10-24 18:51 | EKG12_ITS ---
Test Reason : [facility] Blood Pressure : / mmHG Vent. Rate : 114 BPM Atrial Rate : 114 BPM P-R Int : 184 ms QRS Dur : 066 ms QT Int : 330 ms P-R-T Axes : 039 -11 021 degrees QTc Int : 454 ms Sinus tachycardia Low voltage QRS Inferior infarct , age undetermined, cannot be excluded Poor R wave progression Anterior NV, age undetermined, cannot be excluded Abnormal ECG Confirmed by GENET BRODY, CANDICE ([id number]), supervising film or videotape editor MYRON STOUT ([id number]) on 10/26/2021 9:27:40 AM Referred By: MARIFER Confirmed By:CANDICE DE LEÓN MD
--- NOTE | 2021-10-24 18:52 | EX.ED.VIS.PS ---
HPI HPI - Psych History of Present Illness Chief Complaint: Mental Health Informant: patient, police/medical librarian and mental health staff Narrative Narrative: 41-year-old female with a history of schizophrenia presenting to the emergency department with psychosis. The patient is well-known to law enforcement and the officer that accompanies her today states that he was with her last night and that she fought him last week. Patient reportedly has not been taking her psychiatric medications. She was at the counseling center today for an appointment and had bizarre behavior and outburst and police were called to bring her to the hospital under pink slip. PFSH PFSH Medical History Anxiety Schizophrenia Allergy/AdvReac Type Severity Reaction Status Date / Time risperidone Allergy Unknown Verified 10/07/21 14:54 Tetanus Vaccines and Toxoid Allergy Unknown Verified 10/07/21 14:54 [Tetanus Vaccines & Toxoid] Social History Smoking Status: Current every day smoker tobacco type: cigarettes ROS ROS ED Review of Systems ROS Unobtainable: due to mental condition EXAM Physical Exam Const Vital Signs: 10/24/21 18:42 10/24/21 19:52 10/24/21 20:14 Temperature 97.2 F L Temperature Source Temporal Pulse Rate 136 H Respiratory Rate 17 15 16 Blood Pressure 209/180 H Blood Pressure Mean 189 Pulse Ox 98 Oxygen Delivery Method Room Air Room Air Room Air Positive well nourished, well developed and obese General Appearance ED: well developed Nutritional Appearance: obese HEENT Reports normocephalic, head/scalp atraumatic and moist mucous membranes Eyes PERRL and EOMs intact bilaterally Neck no lymphadenopathy, supple and no JVD Resp normal respiratory effort and clear to auscultation bilaterally Cardio regular rate, regular rhythm and no murmurs GI normal to inspection, nondistended, normoactive bowel sounds and non-tender Palpation: soft Back/Spine no CVA tenderness and normal ROM Extremity normal to inspection General Extremety ED: Negative for edema General Extremity: Negative for edema Neuro Neuro Narrative: Patient is hyperalert and internally stimulated appearing. She is screaming at the staff and cursing at them. She is attempting to fight the police. Patient is not redirectable. Psych mental status grossly normal Mood & Affect: Negative for depressed or tearful Skin no rashes or lesions noted and no wounds MDM MDM MDM Narrative Medical decision making narrative: Patient required sedation and she received Geodon. Basic blood work essentially negative except for a white count of 13 glucose of 177. Urine screen is negative is negative. COVID is negative. Alcohol is negative. Patient plan is to have the patient evaluated by crisis and disposition being made after that Lab Data Attestation: I reviewed the patient's lab results. Labs: Laboratory Results - last 24 hr 10/24/21 10/24/21 10/24/21 18:54 19:20 19:20 WBC 13.0 H RBC 4.49 Hgb 13.4 Hct 40.1 MCV 89.3 MCH 29.8 MCHC 33.4 RDW Std Deviation 43.8 RDW Coeff of Aubrey 13.4 Plt Count 367 MPV 10.0 Immature Gran % (Auto) 0.400 Neut % (Auto) 68.4 Lymph % (Auto) 23.2 Smyth % (Auto) 7.6 Eos % (Auto) 0.2 Baso % (Auto) 0.2 Absolute Neuts (auto) 8.9 H Absolute Lymphs (auto) 3.01 Nucleated RBC % 0 Sodium 137 Potassium 3.7 Chloride 104 Carbon Dioxide 24.0 Anion Gap 9 BUN 10 Creatinine 0.95 Estim Creat Clear Calc 72.22 Est GFR (MDRD) Af Amer 83 Est GFR (MDRD) Non-Af 68 BUN/Creatinine Ratio 10.5 Glucose 177 H Calcium 9.2 Total Bilirubin 0.20 AST 13 L ALT 28 Alkaline Phosphatase 114 Total Protein 7.1 Albumin 3.6 Globulin 3.5 Albumin/Globulin Ratio 1.0 Serum , Qual Urine Opiates Screen NEGATIVE Urine Methadone Screen NEGATIVE Ur Barbiturates Screen NEGATIVE Ur Phencyclidine Scrn NEGATIVE Ur Amphetamines Screen NEGATIVE MDMA (Ecstasy) Screen NEGATIVE U Benzodiazepines Scrn NEGATIVE Urine Cocaine Screen NEGATIVE U Cannabinoids Screen NEGATIVE Ur Drug Screen Comment Ethyl Alcohol 10/24/21 10/24/21 19:20 19:20 WBC RBC Hgb Hct MCV MCH MCHC RDW Std Deviation RDW Coeff of Aubrey Plt Count MPV Immature Gran % (Auto) Neut % (Auto) Lymph % (Auto) Smyth % (Auto) Eos % (Auto) Baso % (Auto) Absolute Neuts (auto) Absolute Lymphs (auto) Nucleated RBC % Sodium Potassium Chloride Carbon Dioxide Anion Gap BUN Creatinine Estim Creat Clear Calc Est GFR (MDRD) Af Amer Est GFR (MDRD) Non-Af BUN/Creatinine Ratio Glucose Calcium Total Bilirubin AST ALT Alkaline Phosphatase Total Protein Albumin Globulin Albumin/Globulin Ratio Serum , Qual NEGATIVE Urine Opiates Screen Urine Methadone Screen Ur Barbiturates Screen Ur Phencyclidine Scrn Ur Amphetamines Screen MDMA (Ecstasy) Screen U Benzodiazepines Scrn Urine Cocaine Screen U Cannabinoids Screen Ur Drug Screen Comment Ethyl Alcohol 3.0 EKG Initial EKG: Attestation: I personally reviewed and interpreted this EKG as follows: Comments: Sinus tachycardia with a ventricular rate of 114 bpm Discharge Plan Triage Chief Complaint: Mental Health ED Provider: Robin Cronin Dx/Rx/DC Orders Clinical Impression: Acute psychosis Primary Care Provider: Care Physician,No Primary Referrals: Care Physician,No Primary [Primary Care Provider] - Disposition Disposition: Psychiatric Hospital or Unit
[2021-10-24] MEDS: Ziprasidone IM 20 MG/ML VIAL IM (18:54)
[2021-10-24 19:22] LABS: Amphetamine Urine VISTA NEGATIVE (<1000 ng/mL); Barbiturate Urine VISTA NEGATIVE (< 200 ng/mL); Benzodiazepine Urine VISTA NEGATIVE (< 200 ng/mL); Cocaine Urine VISTA NEGATIVE (< 300 ng/mL); Ecstacy Urine VISTA NEGATIVE (< 500 ng/mL); Methadone Urine VISTA NEGATIVE (< 300 ng/mL); PCP Urine VISTA NEGATIVE (< 25 ng/mL); THC Urine VISTA NEGATIVE (< 50 ng/mL); Vista UDS pH Range 6
[2021-10-24 19:29] LABS: Absolute Lymphocyte Count 3.01 X10^3/uL (0.83-4.51); Absolute Neutrophil Count 8.9 X10^3/uL (2.0-7.7); Basophil# 0.03 X10^3/uL; Basophil% 0.2 % (0-1); Eosinophil# 0.02 X10^3/uL; Eosinophils% 0.2 % (0-5); Hematocrit 40.1 % (37-47); Hemoglobin 13.4 g/dL (12.0-15.0); Lymphocyte # 3.01 X10^3/ul (0.83-4.51); Lymphocyte % 23.2 % (19-41); Mean Corp Hgb Conc 33.4 g/dL (32-36); Mean Corpuscular Hgb 29.8 pg (27.0-32.0); Mean Corpuscular Volume 89.3 fL (81-99); Monocyte# 0.98 X10^3/uL; Monocyte% 7.6 % (0-10); NRBC Flagged by Analyzer 0 % (0-5); Neutrophil # 8.89 X10^3/uL (2.7-7.7); Neutrophil % 68.4 % (47-70); Platelet Count 367 K/mm3 (150-450); RBC Distribution Width CV 13.4 % (11.6-14.6); RBC Distribution Width SD 43.8 fl (35.1-43.9); Red Blood Count 4.49 M/mm3 (4.2-5.4)
[2021-10-24 19:40] LABS: Internal QC Validated? YES +Cl - CLEAR BKGD; Pregnancy, Serum, hCG Quali. NEGATIVE Negative
[2021-10-24 19:46] LABS: AST(SGOT) 13 U/L (15-37); Alanine Aminotransfer ALT/SGPT 28 U/L (13-56); Albumin, Serum 3.6 g/dL (3.2-5.0); Alkaline Phosphatase 114 U/L (45-117); Anion Gap 9 (5-15); BUN 10 mg/dL (7-18); BUN/Creat Ratio 10.5 RATIO (10-20); Calcium,Total 9.2 mg/dL (8.5-10.1); Chloride 104 mmol/L (98-107); Creatinine, Serum 0.95 mg/dL (0.55-1.02); EST Glomerular Filtration Rate 68 mL/min (>60); Est Glom Filt Rate - Afr Amer 83 mL/min (>60); Estimated Creatinine Clearance 72.22 ml/min; Globulin 3.5 g/dL (2.2-4.2); Glucose 177 mg/dL (74-106); Potassium 3.7 mmol/L (3.5-5.1); Protein, Total 7.1 g/dL (6.4-8.2); Sodium Level 137 mmol/L (136-145)
[2021-10-24 19:52] VITALS: RESP 15
--- NOTE | 2021-10-24 20:01 | CM.ED ---
Social Work Note SW received call from Charlette at [facility]. Charlette states pt is being brought to [facility] ED. Charlette states that pt is Psychotic and not med compliant. Charlette states that the assessment and [place] are done. Charlette states that pt will need medical clearance. Charlette states that once pt is medically cleared, to fax clinicals to [facility] and they will work on placement for pt. Charlette states pt is not suicidal or homicidal. Carmen Eaton NUCLEAR SECURITY OFFICER, GO GO DANCER
[2021-10-24 20:14] VITALS: RESP 16
[2021-10-24 23:53] VITALS: BP 114/68; PULSE 79; RESP 16; O2SAT 95
[2021-10-25] VITALS (9 sets, daily range): BP systolic 140–146; BP diastolic 72–74; PULSE 100–104; RESP 15–18; TEMP 36.6; O2SAT 96–97
--- NOTE | 2021-10-25 00:10 | NURSING ---
[facility] CALL[facility] AND PT WAS REFERRED TO [facility] IN [place].
--- NOTE | 2021-10-25 10:56 | CM.ED ---
Social Work Note SKIP placed a call to [facility] and spoke with Meera. Meera states [facility] declined pt this morning. Meera states pt is pending at [facility]. Meera states that her plan was to wait until after 10:00am and start calling facilities again as discharges happen after 10:00am. Meera states that if she finds a place that has a bed available, she will send referral. Meera states she mentioned that possibly have the physician do a doctor to doctor with one of the facilities. Meera states she will call [facility] when she has a found a place that has a bed available. Meera states that she has already spoken to Alexia about intervening and getting the Mental Health Board involved. Meera states that Lena has already reached out to [facility] who has a 13 person wait list. Crisis to continue to work on psych placement for pt. Carmen Eaton ACCOUNTING ASSISTANT, RESPIRATORY PHYSICIAN
--- NOTE | 2021-10-25 11:39 | NURSING ---
FAXED COVID AND PINK SLIP TO CRISIS
--- NOTE | 2021-10-25 13:19 | NURSING ---
[facility] ROOM [id number] MONTERROSO NURSE TO NURSE [phone]
[2021-10-25] MEDS: Nicotine Polacrilex 2 MG GUM PO (13:39)
== END 2021-10-25 14:23 ==
PROVIDERS: Emergency Provider Emergency Medicine; Visit Provider Emergency Medicine
DX: F23 Brief psychotic disorder (principal); F20.9 Schizophrenia, unspecified; Z20.822 Contact with and (suspected) exposure to COVID-19; F41.9 Anxiety disorder, unspecified; E66.9 Obesity, unspecified; F17.210 Nicotine dependence, cigarettes, uncomplicated
CPT/HCPCS: 80053; 80307; 82077; 84703; 85025; 87811; 93005; 96372; 99285